=== PATIENT | female | born 1935 | race Caucasian/White ===

== ENCOUNTER 2016-11-02 09:43 | Outpatient (CLI) | payer OTHER ==
--- NOTE | 2016-11-02 10:53 | DI ---
Examination: Two radiographic images of the chest. Comparison: 08/16/2016. Reason for study: Cough. FINDINGS: No pneumothorax, pleural effusion, or focal consolidation. Linear density overlying the mid mediastinum is presumed to be in the subcutaneous soft tissues. Surgical clips are seen in the a xilla anterior chest. Chronic compression fractures seen in the lower thoracic spine. Impression: No acute cardiopulmonary findings.
--- NOTE | 2016-11-02 11:01 | DI ---
EXAM: Radiographs, paranasal sinus HISTORY: Rhinitis. COMPARISON: None available. TECHNIQUE: Four views. FINDINGS/IMPRESSION: Inferior right maxillary sinus mucoperiosteal thickening suspected. There may be nasal turbinate hy pertrophy. No facial fracture identified.
== END 2016-11-02 09:44 | disposition home or self-care (01) ==
LOC: RAD 09:43
PROVIDERS: ATTEND Family Medicine
DX: J31.0 Chronic rhinitis (principal)

== ENCOUNTER 2017-12-17 15:23 | Emergency (ER) ==
[2017-12-17 15:29] VITALS: BMI 22.1
[2017-12-17] MEDS ORDERED: SODIUM CHLORIDE 1,000 ML IV STA ×2 (15:37→16:46)
--- NOTE | 2017-12-17 16:40 | ED.PDOC ---
General ED Provider: Dr. ILANA HUYNH Chief Complaint: Fall Stated Complaint: Patient is [place] the Er with [place] the park. She fell backwords hitting the back of her head sustaining a laceration with alot of bleeding. Time Seen by Physician: 16:37 Mode of Arrival: Walk-In Information Source: Patient Primary Care Provider: LUPE JOZEF Seen Within Last 72 Hours for Same Complaint By: ED Nursing and Triage Documentation Reviewed and Agree: Yes Reviewed sepsis parameters & appropriate labs ordered?: No System Inflammatory Response Syndrome: Not Applicable Sepsis Protocol: For patient's 13 years and over: Temp is 96.8 and below OR 101 and greater Pulse >90 BPM Resp >20/minute Acutely Altered Mental Status Are patient's symptoms suggestive of a new infection, such as: -Pneumonia -Skin, Soft Tissue -Endocarditis -UTI -Bone, Joint Infection -Implantable Device -Acute Abdominal Infection -Wound Infection -Meningitis -Blood Stream Catheter Infection -Unknown System Inflammatory Response Syndrome: Not Applicable Neurological Complaint Exam - Syncope/Near Syncope Complaint/Exam Onset/Duration: 1 hour ago. Symptoms Are: Resolved Number of Episodes: 1 Frequency of Episodes: 1 Episodes Witnessed: No Loss of Consciousness: Yes Associated Head Trauma: Yes Activity at Onset: Unknown Aggravating: Position change Alleviating: Reports: Spontaneous resolution Associated Signs and Symptoms: Reports: Lightheadedness, Dizziness Cardiac Risk Factors: Reports: None GI Bleed Risk Factors: Reports: None Dysrhythmia Risk Factors: Reports: >45 years old. Denies: Family Hx of sudden Related Surgical History: Reports: None JVD Present: No Carotid Bruit Present: No Glascow Coma Scale (see protocol): 15 Nystagmus Present: No Gag Reflex Present: No Meningeal Signs Positive: No Focal Weakness: Present: None Focal Sensory Loss: Present: None Gait: Unsteady Fpebgs-ph-Lhor: Normal Findings Romberg Test Positive: No Babinski Sign: Negative Right, Negative Left Jd-Hallpike Test Positive: No Differential Diagnoses: CAD, [place], CVA Quality Indicators for Cardiac Chest Pain: EKG in 10min. Quality Indicator For Non-Traumatic Chest Pain/Syncope: EKG Performed Quality Indicators for AMI: EKG in 10min. Review of Systems - Review Of Systems Constitutional: Reports: No symptoms Eyes: Reports: No symptoms Ears, Nose, Mouth, Throat: Reports: No symptoms Respiratory: Reports: No symptoms Cardiac: Reports: No symptoms GI: Reports: No symptoms : Reports: No symptoms Musculoskeletal: Reports: No symptoms Skin: Reports: Bruising, Other (occipital laceration. ) Neurological: Reports: Anxiety, Headache Endocrine: Reports: No symptoms Hematologic/Lymphatic: Reports: No symptoms All Other Systems: Reviewed and Negative Past Medical History - Past Medical History Previously Healthy: Yes Endocrine: Reports: None Cardiovascular: Reports: Hypertension Respiratory: Reports: None Hematological: Reports: None Gastrointestinal: Reports: None Genitourinary: Reports: None Neuro/Psych: Reports: None Musculoskeletal: Reports: None Cancer: Reports: None Last Menstrual Period: N/A - Surgical History General Surgical History: Reports: None - Family History Family History: Reports: None - Social History Smoking Status: Never smoker Hx Substance Use: No Alcohol Screening: None - Immunizations Tetanus Shot up to Date: No Physical Exam - Physical Exam Appearance: Ill-appearing Ill-appearing: Moderate Pain Distress: Moderate Eyes: MAXWELL, EOMI, Conjunctiva clear ENT: Ears normal, Nose normal, Oropharynx normal Neck: Supple Respiratory: Airway patent, Breath sounds clear, Breath sounds equal, Respirations nonlabored Cardiovascular: RRR, Pulses normal, No rub, No murmur GI/: Soft, Nontender Musculoskeletal: Normal strength, ROM intact, No edema, No calf tenderness Skin: Warm (Large Y shapped 8 cm occipital laceration ) Neurological: Sensation intact, Alert, Oriented Psychiatric: Anxious Interpretation - Radiology Interpretation Radiology Interpretation By: Radiologist Radiology Results: Positive Exam Interpreted: CT Scan (tiny Hyperdensites seen along the anteior falx could represent minimal hemorrhage verses area of caclification. Recomm follow up CT in 24 hours. ) - EKG Interpretation Time of EKG #1: 16:11 Rate: Normal Rhythm: Sinus Ectopy: None [place]: NL Procedures - Laceration/Wound Repair SCALP LACERATION Wound Description: Irregular (Y shapped ) Wound Length (cm): 8CM Wound Width: 1 CM Wound Depth: 0.5 Wound Explored: Clean Wound Irrigated: No Wound Prep: Saline Anesthesia: Lidocaine Wound Repaired With: Sutures Suture Size and Type: 3.0 PROLENE Number of Sutures: 18 (RUNNING 17 AND 1 INTERRUPTED.) Splint Applied?: Yes Sling Applied?: No Progress: Tolerated well Physician Notification - Case Discussed Physician Notified: Dr Hollis Time of Notification: 19:45 (Transfer to [facility], [place], operated by [facility].) Critical Care Note - Critical Care Note Total Time (mins): 40 Course - Course Hematology/Chemistry: 12/17/17 15:45 12/17/17 15:45 Orders, Labs, Meds: Lab Review 12/17/17 12/17/17 12/17/17 15:45 15:45 15:45 WBC 5.85 RBC 4.18 L Hgb 12.6 Hct 35.9 L MCV 85.9 MCH 30.1 MCHC 35.1 RDW Coeff of Jose J 12.3 Plt Count 211 Immature Gran % (Auto) 0.3 Neut % (Auto) 45.6 Lymph % (Auto) 42.2 [place] % (Auto) 10.9 H Eos % (Auto) 0.5 Baso % (Auto) 0.5 Immature Gran # (Auto) 0.0 Neut # (Auto) 2.7 Lymph # (Auto) 2.5 [place] # (Auto) 0.6 Eos # (Auto) 0.0 Baso # (Auto) 0.0 Sodium 128 L Potassium 4.6 Chloride 90 L Carbon Dioxide 26 Anion Gap 16.6 BUN 24 H Creatinine 1.04 Estimated GFR (MDRD) 51.00 BUN/Creatinine Ratio 23.07 Glucose 98 Calcium 9.7 Total Bilirubin 0.4 AST 23 ALT 17 Alkaline Phosphatase 114 Total Creatine Kinase 94 Troponin I < 0.0100 B-Natriuretic Peptide 14 Total Protein 7.7 Albumin 4.3 Globulin 3.4 Albumin/Globulin Ratio 1.26 Orders Category Date Time Status EKG-(ED ONLY) Stat CARDIO 12/17/17 15:38 Completed ED IV/MEDIPORT/POWERPORT .ONCE EMERGENCY 12/17/17 15:37 Active Orthostatic [ED ORTHOSTATIC VITAL SIGNS] .ONCE EMERGENCY 12/17/17 16:36 Active B-TYPE NATRIURETIC PEPTIDE Stat LAB 12/17/17 15:45 Completed CBC W/ AUTO DIFF Stat LAB 12/17/17 15:45 Completed COMPREHENSIVE METABOLIC PANEL Stat LAB 12/17/17 15:45 Completed CREATINE KINASE Stat LAB 12/17/17 15:45 Completed TROPONIN I Stat LAB 12/17/17 15:45 Completed 0.9 % Sodium Chloride [Saline Flush] MEDS 12/17/17 15:37 Discontinued 1 syr IVF PRN PRN Sodium Chloride 0.9% [Sodium Chloride] 1,000 ml MEDS 12/17/17 15:37 Discontinued IV 125 mls/hr Sodium Chloride 0.9% [Sodium Chloride] 1,000 ml MEDS 12/17/17 16:46 Discontinued IV BOLUS CHEST, 1V AP ONLY Stat RADS 12/17/17 15:[address] CERVICAL SPINE W/O CONTRAST Stat RADS 12/17/17 15:[address] HEAD W/O CONTRAST Stat RADS 12/17/17 15:37 Completed HIP, RIGHT 2 VIEWS Stat RADS 12/17/17 17:33 Completed PELVIS 1 OR 2 VIEWS Stat RADS 12/17/17 17:33 Completed Medications Discontinued Medications Generic Name Dose Route Start Last Admin Trade Name Freq PRN Reason Stop Dose Admin Sodium Chloride 1,000 mls @ 125 mls/hr 12/17/17 15:37 12/17/17 16:58 Sodium Chloride IV 12/17/17 23:36 Not Given .Q8H STA Sodium Chloride 1,000 mls @ 1,000 mls/hr 12/17/17 16:46 12/17/17 16:58 Sodium Chloride IV 12/17/17 17:45 1,000 mls/hr BOLUS STA Administration Sodium Chloride 1 syr 12/17/17 15:37 Saline Flush IVF PRN PRN To flush IV Vital Signs: Temp Pulse Resp BP Pulse Ox 12/17/17 20:01 97.9 F 80 16 130/46 L 97 12/17/17 16:46 82 126/64 12/17/17 16:45 73 149/65 H 12/17/17 15:24 96.7 F L 91 H 20 164/85 H 94 L Departure - Departure Time of Disposition: 20:10 Disposition: TSF SHORT-TRM HOSP Discharge Problem: Vasovagal syncope Scalp laceration Qualifiers: Encounter type: initial encounter Qualified Code(s): S01.01XA - Laceration without foreign body of scalp, initial encounter Instructions: Laceration (ED) Condition: Good Pt referred to PMD for follow-up: No IPMP verified?: No Allergies/Adverse Reactions: Allergies iodine Adverse Reaction (Verified 12/17/17 15:29) Pt. Stabilized Within Hospital's Capabilities/Transferred To: Transfer to [facility]. Disposition Discussed With: Patient, Family
--- NOTE | 2017-12-17 16:55 | CT ---
EXAM: CT of the head without contrast History: Head trauma. Technique: Multiplanar CT images through the head were obtained without the administration of IV con trast Findings: The visualized paranasal sinuses and mastoid air cells are clear in general. No acute tamika varial abnormalities. Small posterior scalp hematoma. Intracranially the ventricular and cisternal spaces are normal in size, shape and configuration for a patient of this age. Seen along the anterior falx, there are a few tiny 3 mm hyperdensities. No mid line shift and no hydrocephalus. Mild periventricular and subcortical white matter hypodensities. Impression: A few tiny hyperdensities seen along the anterior falx could represent minimal hemorrhage versus areas of calcification. Recommend follow-up head CT in 24 hours.
--- NOTE | 2017-12-17 17:00 | CT ---
EXAM: CT of the cervical spine without contrast History: Head and neck trauma. Technique: Multiplanar CT images through the cervical spine were obtained without the administration of IV contrast Findings: Ground-glass opacity within the right lung apex. The visualized airway remains patent. No acute fracture. Osteopenia. No prevertebral soft tissue swelling. Predental space is not widene d. 4 mm. Grade 1 anterolisthesis of C3 on C4 is most likely degenerative in nature. Severe disc sp lisha narrowing at C4-5 and C5-6. Bony spinal canal is not significantly compromised. Multilevel bila teral bony neural foraminal narrowing secondary to uncovertebral and facet hypertrophy. Impression: 1. No acute fracture. 2. Grade 1 anterolisthesis of C3 on C4. 3. Degenerative changes. 4. Ground-glass infiltrate within the right lung apex requires follow-up chest CT in 3-6 months.
[2017-12-17 20:02] VITALS: BP 130/46; TEMP 97.9
--- NOTE | 2017-12-18 07:33 | DI ---
EXAM: Single frontal view of the chest HISTORY: Mental status change. COMPARISON: Chest x-ray 11/02/2016 FINDINGS: Cardiomediastinal silhouette is unchanged. There is no pneumothorax or pleural effusions. The right axillary surgical clips and surgical clips overlying the right lung are unchanged. There i s no acute consolidation. There are linear ground-glass opacities in the left lung base suggestive o f atelectasis. The osseous structures are unchanged. IMPRESSION: 1. No acute cardiopulmonary process or concern for pneumonia. 2. Linear ground-glass in the left lung base suggestive of atelectasis.
--- NOTE | 2017-12-18 07:40 | DI ---
EXAM: Single frontal view of the pelvis HISTORY: Right hip pain. COMPARISON: Dedicated right hip x-rays same day FINDINGS: There is no cortical irregularity or displaced fracture of the hips. There is no lytic or blastic lesion. There are surgical clips in the right pelvis. Soft tissues are normal. The pelvis demonstrates no acute abnormality or displaced fracture. IMPRESSION: No acute abnormality or displaced fracture of the right hip
--- NOTE | 2017-12-18 07:40 | DI ---
EXAM: Radiographs, right hip HISTORY: Right hip pain. COMPARISON: None available. TECHNIQUE: Two views. FINDINGS: Bone mineralization is decreased. There is no fracture or dislocation. The joint spaces are maintained. No focal soft tissue abnormality is seen. Clips noted in the right pelvis. IMPRESSION: No fracture or dislocation.
== END 2017-12-17 21:30 | disposition short-term general hospital (02) ==
LOC: ED 15:23
DX: S01.01XA Laceration without foreign body of scalp, initial encounter (principal); R55 Syncope and collapse; I10 Essential (primary) hypertension; R42 Dizziness and giddiness; W19.XXXA Unspecified fall, initial encounter
CPT/HCPCS: 36415; 80053; 82550; 83880; 84484; 85025; 93005; 93010; 96360; 99285

== ENCOUNTER 2018-06-23 12:40 | Emergency (ER) | payer OTHER ==
[2018-06-23 12:47] VITALS: TEMP 97.8; BMI 23.3
[2018-06-23] MEDS ORDERED: SODIUM CHLORIDE 1,000 ML IV STA (12:48)
--- NOTE | 2018-06-23 12:54 | ED.PDOC ---
General ED Provider: Dr. ILANA HUYNH Chief Complaint: Syncope Stated Complaint: Patient was at home making dough at home then she felt dizzy and passed out for about 1 min. It took about five minutes to come around. By the time amubulance got there she was back to her self today. She was able to walk to the car without difficulty. Memory is intact denies any headache. Time Seen by Physician: 12:45 Mode of Arrival: Wheelchair Information Source: Patient, Family Exam Limitations: No limitations Primary Care Provider: LUPE HASKINS Nursing and Triage Documentation Reviewed and Agree: Yes Does patient meet sepsis criteria?: No System Inflammatory Response Syndrome: Not Applicable Sepsis Protocol: For patient's 13 years and over: Temp is 96.8 and below OR 101 and greater Pulse >90 BPM Resp >20/minute Acutely Altered Mental Status Are patient's symptoms suggestive of a new infection, such as: -Pneumonia -Skin, Soft Tissue -Endocarditis -UTI -Bone, Joint Infection -Implantable Device -Acute Abdominal Infection -Wound Infection -Meningitis -Blood Stream Catheter Infection -Unknown Neurological Complaint Exam - Syncope/Near Syncope Complaint/Exam Onset/Duration: 30 min Symptoms Are: Resolved Episodes Lasting: Minutes (5) Number of Episodes: 1 Episodes Witnessed: Yes Loss of Consciousness: Yes (mild ) Associated Head Trauma: No Activity at Onset: With exertion (after standing all moring making dough) Associated Signs and Symptoms: Reports: Lightheadedness, Dizziness, Weakness. Denies: Pain, Decreased oral intake, Vomiting, Diarrhea, GI blood loss, Short of air, Chest pain, Palpitations, Diaphoresis, AMS, Numbness, Headache, Seizure , Remote head trauma, Recent head trauma Cardiac Risk Factors: Reports: None GI Bleed Risk Factors: Reports: None Dysrhythmia Risk Factors: Reports: None Related Surgical History: Reports: None JVD Present: No Carotid Bruit Present: No Rectal Heme Positive: No Glascow Coma Scale (see protocol): 15 Nystagmus Present: No Gag Reflex Present: Yes Meningeal Signs Positive: No Focal Weakness: Present: None Focal Sensory Loss: Present: None Gait: Normal [id number]-[id number]: Normal Findings Romberg Test Positive: No Babinski Sign: Negative Right Heel to Toe Normal: No Jd-Hallpike Test Positive: No Differential Diagnoses: TIA, Metabolic Reaction, Seizure Quality Indicator For Non-Traumatic Chest Pain/Syncope: EKG Performed Review of Systems - Review Of Systems Constitutional: Reports: Weakness Eyes: Reports: No symptoms Ears, Nose, Mouth, Throat: Reports: No symptoms Respiratory: Reports: No symptoms Cardiac: Reports: Lightheadedness, Syncope GI: Reports: No symptoms : Reports: No symptoms Musculoskeletal: Reports: No symptoms Skin: Reports: No symptoms Neurological: Reports: No symptoms Endocrine: Reports: No symptoms Hematologic/Lymphatic: Reports: No symptoms All Other Systems: Reviewed and Negative Past Medical History - Past Medical History Previously Healthy: Yes Endocrine: Reports: None Cardiovascular: Reports: Hypertension, Other (Bandle branch block ) Respiratory: Reports: None Hematological: Reports: None Gastrointestinal: Reports: None Genitourinary: Reports: None Neuro/Psych: Reports: None Musculoskeletal: Reports: None Cancer: Reports: None Last Menstrual Period: none - Surgical History General Surgical History: Reports: Hysterectomy, Other (hysterectomy, 5 adhesion surgery, double mastectomy, breast reconstruction ) - Family History Family History: Reports: None - Social History Smoking Status: Never smoker Hx Substance Use: No Alcohol Screening: None Physical Exam - Physical Exam Appearance: Ill-appearing Ill-appearing: Mild Pain Distress: None Eyes: MAXWELL, EOMI, Conjunctiva clear ENT: Ears normal, Nose normal, Oropharynx normal Respiratory: Airway patent, Breath sounds clear, Breath sounds equal, Respirations nonlabored Cardiovascular: RRR, Pulses normal, No rub, No murmur GI/: Soft, Nontender, No masses, Bowel sounds normal, No Organomegaly Musculoskeletal: Normal strength, ROM intact, No edema, No calf tenderness Skin: Warm, Dry, Normal color Neurological: Sensation intact, Motor intact, Reflexes intact, Cranial nerves intact, Alert, Oriented Psychiatric: Anxious Interpretation - Radiology Interpretation Radiology Interpretation By: Radiologist Radiology Results: Negative Exam Interpreted: CT Scan (head ) Radiology Interpretation By: ED Physician Radiology Results: No acute changes Exam Interpreted: CXR (one view ) - Forensic Investigator Rate: Normal Rhythm: Sinus - EKG Interpretation Time of EKG #1: 14:30 Rate: Normal Rhythm: Sinus Ectopy: None Interpretation: RBBB Re-Evaluation - Re-Evaluation Time of Re-Evaluation: 16:36 (no more symptoms of dizziness for 2 hours ) Status: Improved Vital Signs Stable: Yes Critical Care Note - Critical Care Note Total Time (mins): 45 (Stoke work up ) Course - Course Hematology/Chemistry: 06/23/18 13:05 06/23/18 13:05 Orders, Labs, Meds: Lab Review 06/23/18 06/23/18 13:05 13:05 WBC 5.37 RBC 3.88 L Hgb 11.6 L Hct 33.8 L MCV 87.1 MCH 29.9 MCHC 34.3 RDW Coeff of Jose J 12.7 Plt Count 205 Immature Gran % (Auto) 0.2 Neut % (Auto) 63.0 Lymph % (Auto) 24.2 [place] % (Auto) 10.4 H Eos % (Auto) 1.5 Baso % (Auto) 0.7 Immature Gran # (Auto) 0.0 Neut # (Auto) 3.4 Lymph # (Auto) 1.3 [place] # (Auto) 0.6 Eos # (Auto) 0.1 Baso # (Auto) 0.0 Sodium 126.2 L Potassium 4.45 Chloride 90.5 L Carbon Dioxide 28.3 Anion Gap 11.85 BUN 23.3 H Creatinine 1.04 Estimated GFR (MDRD) 51.00 BUN/Creatinine Ratio 22.40 Glucose 121.8 H Calcium 9.27 Total Bilirubin 0.37 AST 31.9 ALT 15.4 Alkaline Phosphatase 119.7 Total Creatine Kinase 54.7 Troponin I < 0.012 Total Protein 7.57 Albumin 4.54 Globulin 3.03 Albumin/Globulin Ratio 1.49 Orders Category Date Time Status EKG-(ED ONLY) Stat CARDIO 06/23/18 12:49 Completed ED APPLY O2 .ONCE EMERGENCY 06/23/18 12:48 Active ED BRAND ADVOCATE APPLIED .ONCE EMERGENCY 06/23/18 12:48 Active ED IV/MEDIPORT/POWERPORT .ONCE EMERGENCY 06/23/18 12:48 Active Orthostatic [ED ORTHOSTATIC VITAL SIGNS] .ONCE EMERGENCY 06/23/18 12:54 Active CBC W/ AUTO DIFF Stat LAB 06/23/18 13:05 Completed COMPREHENSIVE METABOLIC PANEL Stat LAB 06/23/18 13:05 Completed CREATINE KINASE Stat LAB 06/23/18 13:05 Completed TROPONIN I Stat LAB 06/23/18 13:05 Completed 0.9 % Sodium Chloride [Saline Flush] MEDS 06/23/18 12:48 Ordered 1 syr IVF PRN PRN Sodium Chloride 0.9% [Sodium Chloride] 1,000 ml MEDS 06/23/18 12:48 Active IV 125 mls/hr CHEST, 1V AP ONLY Stat RADS 06/23/18 12:[address] HEAD W/O CONTRAST Stat RADS 06/23/18 12:48 Completed Medications Generic Name Dose Route Start Last Admin Trade Name Freq PRN Reason Stop Dose Admin Sodium Chloride 1,000 mls @ 125 mls/hr 06/23/18 12:48 06/23/18 13:40 Sodium Chloride IV 06/23/18 20:47 125 mls/hr .Q8H STA Administration Sodium Chloride 1 syr 06/23/18 12:48 06/23/18 13:40 Saline Flush IVF 1 syr PRN PRN Administration To flush IV Vital Signs: Temp Pulse Resp BP Pulse Ox 06/23/18 13:31 70 163/77 H 06/23/18 13:30 69 146/72 H 06/23/18 12:41 97.8 F 70 18 138/63 95 Departure - Departure Time of Disposition: 16:37 Disposition: HOME SELF-CARE Discharge Problem: Vaso vagal episode Instructions: Near Syncope (ED) Condition: Fair Pt referred to PMD for follow-up: Yes IPMP verified?: No Additional Instructions: Push fluids Take rest every 1-2 hours Return if worse Follow up with PCP in 3 days Allergies/Adverse Reactions: Allergies iodine Adverse Reaction (Verified 06/23/18 12:47) Home Medications: Ambulatory Orders Gabapentin [Neurontin] 100 mg PO TID 06/23/18 Lisinopril/Hydrochlorothiazide [Lisinopril-Hctz 10-12.5 mg Tab] 1 each PO DAILY 06/23/18 Simvastatin 20 mg PO DAILY 06/23/18 Disposition Discussed With: Patient, Family - NIH Stroke Scale 1a. Level of Consciousness: 0=Alert and keenly responsive 1b. Level of Consciousness Questions: 0=Answers correctly to two questions 1c. Level of Consciousness Commands: 0=Performs two tasks correctly 2. Best Gaze: 0=Normal 3. Visual: 0=No visual loss 4. Facial Palsy: 0=Normal 5a. Motor Left Arm: 0=No drift,arm holds 90 degrees for 10 sec., leg 30 degrees for 5 sec. 5b. Motor Right Arm: 0=No drift,arm holds 90 degrees for 10 sec., leg 30 degrees for 5 sec. 6a. Motor Left Le=No drift,arm holds 90 degrees for 10 sec., leg 30 degrees for 5 sec. 6b. Motor Right Le=No drift,arm holds 90 degrees for 10 sec., leg 30 degrees for 5 sec. 7. Limb Ataxia: 0=Absent 8. Sensory: 0=Normal 9. Best Language: 0=No aphasia 10. Dysarthria: 0=Normal 11. Extincion and Inattention: 0=Normal Stroke Scale Total: 0
--- NOTE | 2018-06-23 13:11 | CT ---
EXAM: CT BRAIN HISTORY: Syncope, right facial droop TECHNIQUE: CT brain without intravenous contrast. 5-mm axial sections with Reformations. COMPARISON: 12/17/2017 FINDINGS: There is mild generalized atrophy. There is mild periventricular and deep white matter low attenuatio n which although nonspecific is suggestive of chronic microvascular ischemic change. These findings are stable. Brain otherwise is unremarkable without evidence of hemorrhage or large vessel distribution recent is chemic infarction. There is no suggestion of acute hydrocephalus or subdural fluid collection. No m ass or mass effect. Cranium has no acute finding. Mastoid processes are aerated. The visualized paranasal sinuses are clear. IMPRESSION: No acute intracranial process.
[2018-06-23 13:32] VITALS: BP 163/77
--- NOTE | 2018-06-23 17:00 | DI ---
EXAM: Single view chest COMPARISON: Chest Xray from 12/17/2017 HISTORY: Syncope FINDINGS: Lungs are clear with no lobar consolidation, failure, large effusion or significant atelec tasis. There is old granulomatous disease. Cardiac and mediastinal silhouettes show no acute abnormal ity. There is calcific atherosclerosis of the aorta. No acute soft tissue or osseous abnormalities. T here is a loop recorder seen over the cardiac silhouette. Postoperative changes seen over the right breast and right axilla. IMPRESSION: No active disease.
== END 2018-06-23 16:40 | disposition home or self-care (01) ==
LOC: ED 12:40
DX: R55 Syncope and collapse (principal); R42 Dizziness and giddiness; I10 Essential (primary) hypertension
CPT/HCPCS: 36415; 80053; 82550; 82962; 84484; 85025; 93005; 93010; 96360; 96361; 99283

== ENCOUNTER 2023-05-23 13:44 | Observation (INO) ==
[2023-05-23] MEDS ORDERED: ZOFRAN 4 MG/2 ML IVP STA (14:05)
[2023-05-23] MEDS ORDERED: ROCEPHIN 2 GM/50 ML D5W 2 GM/50 ML BAG IV ONE (14:10)
[2023-05-23] MEDS ORDERED: SODIUM CHLORIDE 1,000 ML IV STA ×2 (14:10→21:05)
[2023-05-23 14:20] LABS: BASOPHILS % (AUTO) 0.3 % (0.0-3.0); EOSINOPHILS % (AUTO) 0.4 % (0.0-7.0); HEMATOCRIT 34.4 % (37.0-47.0); HEMOGLOBIN 11.6 g/dl (12.0-16.0); IMMATURE GRANULOCYTE # (AUTO) 0.1 (0.0-1.0); IMMATURE GRANULOCYTE % (AUTO) 1.5 % (0.0-5.0); LYMPHOCYTES # (AUTO) 1.4 K/uL (0.60-3.4); LYMPHOCYTES % (AUTO) 15.2 (10.0-50.0); MEAN CORPUSCULAR HEMOGLOBIN 29.2 pg (27.0-31.0); MEAN CORPUSCULAR HGB CONC 33.7 (31.8-35.4); MEAN CORPUSCULAR VOLUME 86.6 fl (81.0-99.0); MONOCYTES # (AUTO) 0.6 K/uL (0.4-2.0); MONOCYTES % (AUTO) 6.6 (0-10); PLATELET COUNT 253 10^3/uL (140-440); RDW COEFFICIENT OF VARIATION 12.3 % (11.6-14.8); RED BLOOD COUNT 3.97 10^6/ul (4.20-5.40); WHITE BLOOD COUNT 9.27 K/ul (4.6-10.2)
[2023-05-23 14:35] LABS: BLOOD UREA NITROGEN 14.3 mg/dL (7-17); CALCIUM 9.07 mg/dL (8.4-10.2); CARBON DIOXIDE 24.7 mmol/L (22-30.0); CHLORIDE 87.7 mmol/L (98-107); CREATININE 0.67 mg/dL (0.60-1.30); GLUCOSE 107.6 mg/dL (74-106); MAGNESIUM 1.24 mg/dL (1.6-2.3); POTASSIUM 4.09 mmol/L (3.5-5.1); SODIUM 123.4 mmol/L (134.5-145)
[2023-05-23 14:47] LABS: TROPONIN I < 0.012 ng/ml (0.0000-0.120)
[2023-05-23] MEDS ORDERED: MAGNESIUM SULFATE 1 GM/2 ML VIAL IVP ONE (14:57)
[2023-05-23 15:06] LABS: MOLECULAR FLU A NEGATIVE BY NAAT (NEGATIVE); MOLECULAR FLU B NEGATIVE BY NAAT (NEGATIVE)
[2023-05-23] MEDS ORDERED: MAGNESIUM SULF 2 G/50 ML BAG 2 GM/50 ML PIGGYBACK IV ONE (15:30)
--- NOTE | 2023-05-23 15:45 | ED.PDOC ---
General ED Provider: Dr. SHAWN CAMPBELL Chief Complaint: Nausea/Vomiting Stated Complaint: See above Time Seen by Provider: 05/23/23 13:46 Information Source: Patient Primary Care Provider: LUPE HASKINS Nursing and Triage Documentation Reviewed and Agree: Yes (unless otherwise noted in my documentation.) Review of Systems Review Of Systems Constitutional: Reports Other (documented below) All Other Systems: Other (documented below) [facility] Medical History Colon polyp K63.5 - Polyp of colon (ICD-10) Diverticulosis K57.90 - Diverticulosis of intestine, part unspecified, without perforation or abscess without bleeding (ICD-10) HX: breast cancer Z85.3 - Personal history of malignant neoplasm of breast (ICD-10) Hypertension I10 - Essential (primary) hypertension (ICD-10) Irritable bowel syndrome K58.9 - Irritable bowel syndrome without diarrhea (ICD-10) Mixed hyperlipidemia E78.2 - Mixed hyperlipidemia (ICD-10) Pacemaker Z95.0 - Presence of cardiac pacemaker (ICD-10) Sick sinus syndrome I49.5 - Sick sinus syndrome (ICD-10) Stage 3 chronic kidney disease N18.30 - Chronic kidney disease, stage 3 unspecified (ICD-10) Family History Mother Heart failure FATHER Heart disease Social History Smoking and tobacco status: Never smoker Alcohol intake: never Surgical History History of hysterectomy Z90.710 - Acquired absence of both cervix and uterus (ICD-10) History of mastectomy Z90.10 - Acquired absence of unspecified breast and nipple (ICD-10) Hx of appendectomy Z90.49 - Acquired absence of other specified parts of digestive tract (ICD- 10) Hx of tonsillectomy Z90.89 - Acquired absence of other organs (ICD-10) Status post transverse rectus abdominis muscle (TRAM) flap breast reconstruction Z98.890 - Other specified postprocedural states (ICD-10) Physical Exam Physical Exam Appearance: Reports Other (documented below if examined) Ill-appearing: Not Applicable (documented below if examined) Pain Distress: Not Applicable (documented below if examined) Eyes: Reports Other (documented below if examined) ENT: Reports Other (documented below if examined) Neck: Not Examined (documented below if examined) Respiratory: Reports Other (documented below if examined) Cardiovascular: Reports Other (documented below if examined) GI/: Reports Other (documented below if examined) Musculoskeletal: Reports Other (documented below if examined) Skin: Reports Other (documented below if examined) Neurological: Reports Other (documented below if examined) Psychiatric: Reports Other (documented below if examined) Critical Care Note Critical Care Note Total Critical Care Time (mins): 0 Course Course 05/23/23 14:15 05/24/23 04:12 Orders, Labs, Meds: Lab Review 05/23/23 05/23/23 05/23/23 13:43 14:15 14:35 WBC 9.27 RBC 3.97 L Hgb 11.6 L Hct 34.4 L MCV 86.6 MCH 29.2 MCHC 33.7 RDW Coeff of Jose J 12.3 Plt Count 253 Immature Gran % (Auto) 1.5 Neut % (Auto) 76.0 H Lymph % (Auto) 15.2 Churchill % (Auto) 6.6 Eos % (Auto) 0.4 Baso % (Auto) 0.3 Neut # (Auto) 7.0 H Lymph # (Auto) 1.4 Churchill # (Auto) 0.6 Eos # (Auto) 0.0 Baso # (Auto) 0.0 Immature Gran # (Auto) 0.1 Sodium 123.4 L Potassium 4.09 Chloride 87.7 L Carbon Dioxide 24.7 Anion Gap 15.09 BUN 14.3 Creatinine 0.67 Estimated GFR (MDRD) 84.00 BUN/Creatinine Ratio 21.34 Glucose 107.6 H Calcium 9.07 Magnesium 1.24 L Total Bilirubin AST ALT Alkaline Phosphatase Troponin I < 0.012 Total Protein Albumin Globulin Albumin/Globulin Ratio Urine Color Light Urine Clarity Clear Urine pH 7.0 Ur Specific Calmar 1.020 Urine Protein 1+ H Urine Glucose (UA) Negative Urine Ketones Negative Urine Blood Negative Urine Nitrite Negative Urine Bilirubin Negative Urine Urobilinogen 0.2 Ur Leukocyte Esterase Negative Urine Microscopic WBC 0-2 Ur Squamous Epith Cells 0-2 Influ A Molecular Assay Negative by naat Influ B Molecular Assay Negative by naat 05/23/23 05/24/23 05/24/23 20:25 00:45 04:12 WBC RBC Hgb Hct MCV MCH MCHC RDW Coeff of Jose J Plt Count Immature Gran % (Auto) Neut % (Auto) Lymph % (Auto) Churchill % (Auto) Eos % (Auto) Baso % (Auto) Neut # (Auto) Lymph # (Auto) Churchill # (Auto) Eos # (Auto) Baso # (Auto) Immature Gran # (Auto) Sodium 122.1 L 124.8 L 125.4 L Potassium 4.19 4.18 4.05 Chloride 87.1 L 89.6 L 91.6 L Carbon Dioxide 24.0 25.6 24.4 Anion Gap 15.19 13.78 13.45 BUN 13.6 14.7 14.3 Creatinine 0.67 0.76 0.79 Estimated GFR (MDRD) 84.00 72.00 69.00 BUN/Creatinine Ratio 20.29 19.34 18.10 Glucose 149.5 H 114.6 H 139.0 H Calcium 9.05 8.95 8.56 Magnesium 1.73 Total Bilirubin 0.44 AST 50.4 H ALT 40.6 H Alkaline Phosphatase 117.2 Troponin I Total Protein 7.32 Albumin 4.20 Globulin 3.12 Albumin/Globulin Ratio 1.34 Urine Color Urine Clarity Urine pH Ur Specific Calmar Urine Protein Urine Glucose (UA) Urine Ketones Urine Blood Urine Nitrite Urine Bilirubin Urine Urobilinogen Ur Leukocyte Esterase Urine Microscopic WBC Ur Squamous Epith Cells Influ A Molecular Assay Influ B Molecular Assay Orders Category Date Time Status EKG-(ED ONLY) Stat CARDIO 05/23/23 14:05 Completed ACCUCHECK (ED) [ED ACCUCHECK ASSESSMENT] .ONCE EMERGENCY 05/23/23 14:05 Active ED OVERLOCK ELASTIC ATTACHER APPLIED .ONCE EMERGENCY 05/23/23 14:05 Active BMP [BASIC METABOLIC PANEL] Q4H LAB 05/24/23 00:45 Completed BMP [BASIC METABOLIC PANEL] Q4H LAB 05/24/23 04:12 Completed BMP [BASIC METABOLIC PANEL] Q4H LAB 05/24/23 08:00 Ordered BMP [BASIC METABOLIC PANEL] Q4H LAB 05/24/23 12:00 Ordered BMP [BASIC METABOLIC PANEL] Q4H LAB 05/24/23 16:00 Ordered BMP [BASIC METABOLIC PANEL] Stat LAB 05/23/23 14:15 Completed CBC W/ AUTO DIFF Stat LAB 05/23/23 14:15 Completed COMPREHENSIVE METABOLIC PANEL Stat LAB 05/23/23 20:25 Completed CRP [C-REACTIVE PROTEIN] Stat LAB 05/23/23 14:15 Received FLU A & B MOLECULAR [FLU A/B MOLECULAR] Stat LAB 05/23/23 14:35 Completed MAGNESIUM Stat LAB 05/23/23 14:15 Completed MAGNESIUM Stat LAB 05/23/23 20:25 Completed OSMOLALITY,URINE Stat LAB 05/23/23 14:15 Received SERUM OSMOLALITY Stat LAB 05/23/23 14:15 Received SODIUM,URINE Stat LAB 05/23/23 13:43 Received TROPONIN I Stat LAB 05/23/23 14:15 Completed URINALYSIS C & S IF INDICATED Stat LAB 05/23/23 13:43 Completed Acetaminophen [Tylenol] Meds 05/24/23 00:30 Active 1,000 mg PO Q6H Ceftriaxone/D5w 2 gm Premix [Rocephin 2 gm/50 ml D5w] Meds 05/23/23 14:10 Discontinued 2 gm in 50 ml IV ONCE Ketorolac Tromethamine [Toradol] Meds 05/23/23 18:42 Discontinued 15 mg IVP ONCE STA Ketorolac Tromethamine [Toradol] Meds 05/24/23 00:21 Discontinued 15 mg IVP Q3H PRN Ketorolac Tromethamine [Toradol] Meds 05/24/23 00:36 Active 15 mg IVP Q3H PRN Magnesium Sulfate in Water [Magnesium Sulf 2 G/50 ml Meds 05/23/23 15:30 Discontinued Bag] 2 gm in 50 ml IV ONCE Ondansetron HCl/Pf [Zofran 4 mg/2 ml] Meds 05/23/23 14:05 Discontinued 4 mg IVP ONCE STA Sodium Chloride 0.9% [Sodium Chloride] 1,000 ml Meds 05/23/23 21:05 Discontinued IV 200 mls/hr Sodium Chloride 0.9% [Sodium Chloride] 1,000 ml Meds 05/24/23 04:10 Active IV 200 mls/hr Sodium Chloride 0.9% [Sodium Chloride] 1,000 ml Meds 05/23/23 14:10 Discontinued IV BOLUS ABDOMEN, SERIES FLAT & UPRIGHT Stat RADS 05/23/23 18:41 Completed Medications Generic Name Dose Route Start Last Admin Trade Name Freq PRN Reason Stop Dose Admin Acetaminophen 1,000 mg 05/24/23 00:30 05/24/23 06:47 Acetaminophen 500 Mg Tablet PO 1,000 mg Q6H ASCENCION Administration Sodium Chloride 1,000 mls @ 200 mls/hr 05/24/23 04:10 05/24/23 04:10 Sodium Chloride IV 05/24/23 09:09 200 mls/hr .Q5H STA Administration Ketorolac Tromethamine 15 mg 05/24/23 00:36 05/24/23 02:54 Ketorolac Tromethamine 15 Mg/Ml Vial IVP 05/29/23 00:20 15 mg Q3H PRN Administration Analgesia Discontinued Medications Generic Name Dose Route Start Last Admin Trade Name Roderick PRN Reason Stop Dose Admin Sodium Chloride 1,000 mls @ 1,000 mls/hr 05/23/23 14:10 05/23/23 14:10 Sodium Chloride IV 05/23/23 15:09 1,000 mls/hr BOLUS STA Administration CEFTRIAXONE/D5W 2 GM PREMIX 2 gm in 50 mls @ 100 mls/hr 05/23/23 14:10 05/23/23 14:58 Rocephin 2 Gm/50 Ml D5w IV 05/23/23 14:39 100 mls/hr ONCE ONE Administration MAGNESIUM SULFATE IN WATER 2 gm in 50 mls @ 25 mls/hr 05/23/23 15:30 05/23/23 15:31 Magnesium Sulf 2 G/50 Ml Bag IV 05/23/23 17:29 25 mls/hr ONCE ONE Administration Sodium Chloride 1,000 mls @ 200 mls/hr 05/23/23 21:05 05/23/23 21:29 Sodium Chloride IV 05/24/23 02:04 200 mls/hr .Q5H STA Administration Ketorolac Tromethamine 15 mg 05/23/23 18:42 05/23/23 19:28 Ketorolac Tromethamine 15 Mg/Ml Vial IVP 05/23/23 18:43 15 mg ONCE STA Administration Ketorolac Tromethamine 15 mg 05/24/23 00:21 Ketorolac Tromethamine 15 Mg/Ml Vial IVP 05/29/23 00:20 Q3H PRN Analgesia Ondansetron HCl 4 mg 05/23/23 14:05 05/23/23 14:57 Ondansetron Hcl/Pf 4 Mg/2 Ml Sdv IVP 05/23/23 14:06 4 mg ONCE STA Administration Vital Signs: Temp Pulse Resp BP Pulse Ox 05/24/23 06:50 71 16 152/78 H 96 05/24/23 01:05 86 16 159/80 H 94 L 05/23/23 18:16 87 18 160/82 H 05/23/23 16:25 85 14 166/83 H 97 05/23/23 13:49 97.9 F 91 16 167/81 H 96 Discharge Plan Discharge Discharge Problem: Nausea & vomiting, Acute hyponatremia, Hypomagnesemia Prescriptions: No Action simvastatin 20 MG tablet 40 mg PO .COMPLEX Rx Instructions: 40 mg orally 3TIMES A WEEK AT BEDTIME ON MONDAY, MONDAY, MONDAY; lisinopril-hydrochlorothiazide 10-12.5 mg tablet 1 tab PO DAILY amlodipine 5 mg tablet 5 mg PO BEDTIME sodium chloride 1,000 mg Tablet,Soluble 1,000 mg PO QID Qty: 120 0RF levofloxacin 750 mg tablet 750 mg PO DAILY Qty: 8 0RF nitrofurantoin macrocrystal 100 mg capsule 100 mg PO BID Qty: 14 0RF Rx Instructions: must administer with a meal/food Did you review [place] TENT[employer] for ALL controlled substances?: Not Applicable Discussed opioids are addictive and Narcan is available by prescription or from pharmacy.: No ED Provider: SHAWN CAMPBELL Physician Progress Note: Disclaimer: This note was dictated by speech recognition technology. Minor errors in spare parts clerk may be present. Please call and notify me immediately for clarification or corrections. CC: Nausea and vomiting HPI: This patient was discharged from the hospital yesterday after an admission because of UTI and hyponatremia as well as hypomagnesemia. Sodium and magnesium were replaced and she was started on levofloxacin. Her culture results came back showing resistance to levofloxacin and hence a prescription of nitrofurantoin was sent to the pharmacy but she has not had a chance to pick it up. She was on amlodipine, lisinopril and hydrochlorothiazide for hypertension. Hydrochlorothiazide was stopped but since it was in a combined pill with lisinopril both of them were held. The patient has been feeling weak with myalgia and nausea since she left the hospital. Today her nausea was worse and she had 1 episode of vomiting upon arrival to the ED. The problem list, allergies, current medications and pharmacy records were reviewed and updated. ROS is included above PE: Vital signs reviewed as well as all nursing documentation. General: Awake, alert, no acute distress, not toxic appearing, appears weak and dry Overall, the patient is atraumatic, has no deformities, has no focal deficits, has no inappropriate behavior. Respiratory: No distress Cardiac: no JVD, RRR, nonpitting edema of the lower extremities bilaterally MDM: All results and reports for tests that were done in the emergency department has been reviewed and considered in the planning and disposition process. DD: Metabolic derangement, sepsis, viral syndrome, gastritis, uremia, arrhythmia Plan: CBC, BMP, EKG, cardiac monitoring, 2 g of Rocephin, 1 L of normal saline. Interpretation of tests: The labs were remarkable for significant decrease in sodium, chloride and magnesium compared to her discharge values, otherwise the rest of the labs were unremarkable. EKG was independently reviewed and interpreted and showed normal sinus rhythm, left axis deviation and left bundle branch block, no signs of acute ischemic changes. Further action: The patient has an tent finisher but it is unclear why she follows up with a tent finisher. However, at this time she definitely needs nephrology consult. Urine studies were ordered. The patient needs admission to replace sodium and magnesium and for cardiac monitoring in the meantime. She is going to need an urgent nephrology consult. She will be transferred to [facility] since this is where her tent finisher practices. She is going to receive magnesium replacement prior to departure. The patient's daughter said that the patient had a history of small bowel obstruction and that she is afraid that she may be having that today. Clinically she does not appear to have the clinical picture for small bowel obstruction but abdominal series was ordered and I reviewed the radiology report. There were no acute findings. [facility] and [facility] didn't have beds Expanded search. D/W hospitalist at our facility. She refused admission due to need for tent finisher. D/w Physical Education Professor at and accepted to consult if accepted by hospitalist. Waiting for hospitalist call. Transfer center called me and requested update. I requested a med/surg bed. Awaiting response. Hospitalist refused transfer to . I discussed with our on-call hospitalist at our facility and she refused admission because of continued need for nephrology service. I argued that the hyponatremia is too mild for higher level of care to accept and it is too low to discharge. The patient is going to need to slightly improve and then have an outpatient nephrology consult. However our on-call hospitalist continued to feel that higher level of care is necessary. At this time the patient will continue to stay in the emergency department, get serial BMP measurements and continue normal saline at 200 mL/h. I discussed the plan with the family and they were not happy but they did not have any other suggestion. The patient's daughter brought up the concern that the normal saline bolus that was ordered when the patient first arrived was not really given. She argued that sodium has been going up after starting sodium chloride at 200 mL/h but it went down initially even though a liter bolus was documented. At shift change, the patient's sodium is continued to go up very gradually. The incoming physician is going to discuss with the head the hospitalist to arrange for disposition.
[2023-05-23 15:53] LABS: BILIRUBIN,URINE Negative (NEGATIVE); CLARITY,URINE Clear (CLEAR); COLOR,URINE Light (YELLOW); GLUCOSE, URINE (UA) Negative (NEGATIVE); KETONES,URINE Negative (NEGATIVE); LEUKOCYTE ESTERASE ,URINE Negative (NEGATIVE); NITRITE,URINE Negative (NEGATIVE); PROTEIN,URINE 1+ (NEGATIVE); URINE, BLOOD Negative (NEGATIVE); UROBILINOGEN,URINE 0.2 (0.2)
[2023-05-23 16:00] LABS: SQUAMOUS EPITHELIAL CELL,UR 0-2 (0-5); URINE WBC, MICROSCOPIC 0-2 (0-2)
[2023-05-23] MEDS ORDERED: TORADOL IVP STA (18:42)
--- NOTE | 2023-05-23 19:44 | DI ---
EXAM: TWO VIEW ABDOMEN RADIOGRAPH. HISTORY: Nausea and vomiting. TECHNIQUE: Two views. AP supine and AP erect. COMPARISON: None. FINDINGS: In the upright view, no free air is seen under the hemidiaphragms. The bowel gas pattern is non-obstructive. Moderate amount of stool in the proximal colon. No large mass is identified. There are no abnormal calcifications overlying the urinary tracts. 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 IMPRESSION: 1. Nonobstructive bowel gas pattern. 2. No free air.
[2023-05-23 20:40] LABS: ALANINE AMINOTRANSFERASE 40.6 U/L (0-35); ALBUMIN 4.2 g/dL (3.5-5.0); ALKALINE PHOSPHATASE 117.2 U/L (53-141); ASPARTATE AMINO TRANSFERASE 50.4 U/L (14-36); BILIRUBIN,TOTAL 0.44 mg/dL (0.2-1.3); BLOOD UREA NITROGEN 13.6 mg/dL (7-17); CALCIUM 9.05 mg/dL (8.4-10.2); CHLORIDE 87.1 mmol/L (98-107); CREATININE 0.67 mg/dL (0.60-1.30); GLUCOSE 149.5 mg/dL (74-106); POTASSIUM 4.19 mmol/L (3.5-5.1); SODIUM 122.1 mmol/L (134.5-145); TOTAL PROTEIN 7.32 g/dL (6.3-8.2)
[2023-05-23 21:25] LABS: MAGNESIUM 1.73 mg/dL (1.6-2.3)
[2023-05-24] MEDS ORDERED: TORADOL IVP PRN ×2 (00:21→00:36)
[2023-05-24] MEDS: TYLENOL PO SCH ×3 (00:51→12:37)
[2023-05-24 01:10] LABS: BLOOD UREA NITROGEN 14.7 mg/dL (7-17); CALCIUM 8.95 mg/dL (8.4-10.2); CARBON DIOXIDE 25.6 mmol/L (22-30.0); CHLORIDE 89.6 mmol/L (98-107); CREATININE 0.76 mg/dL (0.60-1.30); GLUCOSE 114.6 mg/dL (74-106); POTASSIUM 4.18 mmol/L (3.5-5.1); SODIUM 124.8 mmol/L (134.5-145)
[2023-05-24] MEDS ORDERED: SODIUM CHLORIDE 1,000 ML IV STA (04:10)
[2023-05-24 04:28] LABS: BLOOD UREA NITROGEN 14.3 mg/dL (7-17); CALCIUM 8.56 mg/dL (8.4-10.2); CARBON DIOXIDE 24.4 mmol/L (22-30.0); CHLORIDE 91.6 mmol/L (98-107); CREATININE 0.79 mg/dL (0.60-1.30); POTASSIUM 4.05 mmol/L (3.5-5.1); SODIUM 125.4 mmol/L (134.5-145)
[2023-05-24 08:12] LABS: BLOOD UREA NITROGEN 13.7 mg/dL (7-17); CALCIUM 8.61 mg/dL (8.4-10.2); CARBON DIOXIDE 23.8 mmol/L (22-30.0); CHLORIDE 94.5 mmol/L (98-107); CREATININE 0.76 mg/dL (0.60-1.30); GLUCOSE 112.9 mg/dL (74-106); POTASSIUM 4.53 mmol/L (3.5-5.1); SODIUM 127.4 mmol/L (134.5-145)
[2023-05-24 08:30] LABS: SARS COV-2 RNA RAPID NAAT NEGATIVE (NEGATIVE)
[2023-05-24] MEDS ORDERED: ZOFRAN 4 MG/2 ML IVP PRN (08:58)
[2023-05-24] MEDS ORDERED: MACROBID PO SCH (09:00)
[2023-05-24 09:52] VITALS: BMI 26.6
[2023-05-24] MEDS: SODIUM CHLORIDE PO SCH ×4 (10:29→20:16)
[2023-05-24] MEDS: KEFLEX PO SCH ×3 (10:30→17:07)
--- NOTE | 2023-05-24 10:50 | PCM ---
Date of Service Date Seen by Provider: 05/24/23 Time Seen by Provider: 09:30 Admit Day/Time Admission Date: 05/24/23 Admission Time: 07:30 Reason for Admission Chief Complaint: HYPONATREMIA, UTI Hospital Provider Hospital Provider: ENE[place] COX[place] [facility] [place] Primary Care Physician: LUPE HASKINS History of Present Illness History of Present Illness: This 87 year old female was seen in the ER yesterday for nausea and vomiting. She was recently admitted on 05/19/2023 and discharged on 05/22/2023 for hyponatremia. She was discharged with oral Levaquin for UTI and sodium tablets to be taken QID for her chronic hyponatremia. Antibiotics were changed to Macrobid due to culture coming back as Levaquin resistant. This was told to the daughter earlier in the day. Her family brought her back to the ER because patient told them she did not feel well, had been nauseous, vomiting, and wanted to be taken back to the ER. It is unknown what medications she has taken and if she took her sodium tablets. Patient stated that she could not remember if she ate food prior to taking her Levaquin but knows she took it and got sick. Daughter states that they called her PCP and he instructed her to stop taking the sodium tablets because they could be contributing to her nausea. Patient has a call or contact centre coach out of [place] that she sees twice a year, last seen in the spring of this year. Daughter and patient could not tell why exactly she saw Dr. Do, Floor Worker. They stated they were unaware of her having a history of low sodium. It was explained that she is at her baseline sodium level currently and she would still need to take her sodium tablets. At this time, denies complaints of any additional N/V during hospital stay, fever, chills, abdominal pain. Does report weakness. Case Discussed With Case Discussed With: Patient's case was discussed with the ER Physicians, Dr. Claros [facility] Medical History Colon polyp K63.5 - Polyp of colon (ICD-10) Diverticulosis K57.90 - Diverticulosis of intestine, part unspecified, without perforation or abscess without bleeding (ICD-10) HX: breast cancer Z85.3 - Personal history of malignant neoplasm of breast (ICD-10) Hypertension I10 - Essential (primary) hypertension (ICD-10) Irritable bowel syndrome K58.9 - Irritable bowel syndrome without diarrhea (ICD-10) Mixed hyperlipidemia E78.2 - Mixed hyperlipidemia (ICD-10) Pacemaker Z95.0 - Presence of cardiac pacemaker (ICD-10) Sick sinus syndrome I49.5 - Sick sinus syndrome (ICD-10) Stage 3 chronic kidney disease N18.30 - Chronic kidney disease, stage 3 unspecified (ICD-10) Surgical History History of hysterectomy Z90.710 - Acquired absence of both cervix and uterus (ICD-10) History of mastectomy Z90.10 - Acquired absence of unspecified breast and nipple (ICD-10) Hx of appendectomy Z90.49 - Acquired absence of other specified parts of digestive tract (ICD- 10) Hx of tonsillectomy Z90.89 - Acquired absence of other organs (ICD-10) Status post transverse rectus abdominis muscle (TRAM) flap breast reconstruction Z98.890 - Other specified postprocedural states (ICD-10) Family History Mother Heart failure FATHER Heart disease Social History Smoking and tobacco status: Never smoker Alcohol intake: never Allergies Allergies Allergy/AdvReac Type Severity Reaction Status Date / Time iodine AdvReac Verified 06/23/18 12:47 Current Medications Home Medications simvastatin 20 mg tablet 40 mg PO .COMPLEX 06/23/18 [History Confirmed 05/23/23 Last Taken Unknown] amlodipine 5 mg tablet 5 mg PO BEDTIME 05/19/23 [History Confirmed 05/23/23 Last Taken 05/18/23] levofloxacin 750 mg tablet 750 mg PO DAILY #8 tabs 05/22/23 [Rx Confirmed 05/23/23 Last Taken Unknown] sodium chloride 1,000 mg soluble tablet 1,000 mg PO QID #120 tabs 05/22/23 [Rx Confirmed 05/23/23 Last Taken Unknown] lisinopril 10 mg-hydrochlorothiazide 12.5 mg tablet 1 tab PO DAILY 05/23/23 [History Confirmed 05/24/23 Last Taken Unknown] nitrofurantoin macrocrystal 100 mg capsule 100 mg PO BID #14 caps 05/23/23 [Rx Confirmed 05/23/23 Last Taken Unknown] Home Acetaminophen (Acetaminophen 500 Mg Tablet) 1,000 mg PO Q6H [facility] Last Admin: 05/24/23 06:47 Dose: 1,000 mg Acetaminophen (Acetaminophen 325 Mg Tablet) 650 mg PO Q4H PRN PRN Reason: Mild Pain Amlodipine Besylate (Amlodipine Besylate 5 Mg Tablet) 5 mg PO BEDTIME [facility] Cephalexin (Cephalexin 500 Mg Capsule) 500 mg PO Q6HR [facility] Stop: 05/27/23 09:29 Last Admin: 05/24/23 10:30 Dose: 500 mg Ketorolac Tromethamine (Ketorolac Tromethamine 15 Mg/Ml Vial) 15 mg IVP Q3H PRN PRN Reason: Analgesia Stop: 05/29/23 00:20 Last Admin: 05/24/23 02:54 Dose: 15 mg Ondansetron HCl (Ondansetron Hcl/Pf 4 Mg/2 Ml Sdv) 4 mg IVP Q6H PRN PRN Reason: Nausea / Vomiting Simvastatin (Simvastatin 10 Mg Tablet) 40 mg PO .COMPLEX [facility]ENC[facility] Sodium Chloride (Sodium Chloride 1 Gm Tablet) 1 gm PO QID [facility] Last Admin: 05/24/23 10:29 Dose: 1 gm Discontinued Medications Sodium Chloride (Sodium Chloride) 1,000 mls @ 1,000 mls/hr IV BOLUS STA Stop: 05/23/23 15:09 Last Admin: 05/23/23 14:10 Dose: 1,000 mls/hr CEFTRIAXONE/D5W 2 GM PREMIX (Rocephin 2 Gm/50 Ml D5w) 2 gm in 50 mls @ 100 mls/hr IV ONCE ONE Stop: 05/23/23 14:39 Last Admin: 05/23/23 14:58 Dose: 100 mls/hr MAGNESIUM SULFATE IN WATER (Magnesium Sulf 2 G/50 Ml Bag) 2 gm in 50 mls @ 25 mls/hr IV ONCE ONE Stop: 05/23/23 17:29 Last Admin: 05/23/23 15:31 Dose: 25 mls/hr Sodium Chloride (Sodium Chloride) 1,000 mls @ 200 mls/hr IV .Q5H STA Stop: 05/24/23 02:04 Last Admin: 05/23/23 21:29 Dose: 200 mls/hr Sodium Chloride (Sodium Chloride) 1,000 mls @ 200 mls/hr IV .Q5H STA Stop: 05/24/23 09:09 Last Admin: 05/24/23 04:10 Dose: 200 mls/hr Ketorolac Tromethamine (Ketorolac Tromethamine 15 Mg/Ml Vial) 15 mg IVP ONCE STA Stop: 05/23/23 18:43 Last Admin: 05/23/23 19:28 Dose: 15 mg Ketorolac Tromethamine (Ketorolac Tromethamine 15 Mg/Ml Vial) 15 mg IVP Q3H PRN PRN Reason: Analgesia Stop: 05/29/23 00:20 Ondansetron HCl (Ondansetron Hcl/Pf 4 Mg/2 Ml Sdv) 4 mg IVP ONCE STA Stop: 05/23/23 14:06 Last Admin: 05/23/23 14:57 Dose: 4 mg Review of Systems Constitutional: Reports Weakness Head: Reports Normocephalic and Atraumatic Eyes: Reports No symptoms Ears: Reports No symptoms Nose: Reports No symptoms Mouth: Reports No symptoms Throat: Reports No symptoms Cardiovascular: Reports No symptoms Respiratory: Reports No symptoms Gastrointestinal: Reports No symptoms Genitourinary: Reports No Symptoms Musculoskeletal: Reports No symptoms Endocrine: Reports No symptoms Hematology: Reports No symptoms Immunology: Reports No symptoms Neurological: Reports No symptoms Psychiatric: Reports No symptoms Physical examination Most Recent Vital Signs: Most Recent Vital Signs Temperature 97.8 F 05/24/23 09:26 Temperature Source Oral 05/24/23 09:26 Temperature Source Infrared 05/23/23 13:49 Pulse Rate 87 05/24/23 09:26 Respiratory Rate 16 05/24/23 09:26 Blood Pressure 147/65 H 05/24/23 08:41 Blood Pressure Left Arm 144/73 05/24/23 09:26 Blood Pressure Position Supine 05/24/23 09:26 O2 Sat by Pulse Oximetry 95 05/24/23 09:26 Oxygen Delivery Method Room Air 05/24/23 09:26 Height 5 ft 2 in 05/24/23 09:26 Weight 145 lb 8.081 oz 05/24/23 09:26 Telemetry Heart Rate 80 05/22/23 07:00 Telemetry SPO2 93 05/22/23 01:00 Appearance: Positive Well-appearing, No Apparent Distress and Alert and Oriented x3 Skin: Positive Warm and Good Color HEENT: Positive Normocephalic, Atraumatic and PERRLA Neck: Positive Supple and Midline Trachea Chest/Lungs: Positive Symmetrical With Equal Breath Sounds, Clear to Auscultation Bilaterally and Good Air Movement all 4 Lung Sorto Heart: Positive RRR and Pulses Normal GI/: Positive Soft, Nontender, Bowel Sounds Normal and No Distention Musculoskeletal: Positive Not Examined Extremities: Positive Edema (1-2 nonpitting edema, chronic), Intact Peripheral Pulses, Stable Joints Without Laxity and Good ROM in All Joints Neurological: Positive Sensation Intact, Motor intact, Reflexes Intact, Alert, Oriented and Muscle Strength 5/5 in Upper and Lower Extremities Bilaterally Psychiatric: Positive Oriented x4, Appropriate Mood, Appropriate Affect, Intact Memory, Good Short-Term Recall, Good Long-Term Recall, Normal Judgement and Normal Insight Labs This Visit Labs This Visit: Labs This Visit 05/23/23 05/23/23 05/23/23 13:43 14:15 14:35 WBC 9.27 RBC 3.97 L Hgb 11.6 L Hct 34.4 L MCV 86.6 MCH 29.2 MCHC 33.7 RDW Coeff of Jose J 12.3 Plt Count 253 Immature Gran % (Auto) 1.5 Neut % (Auto) 76.0 H Lymph % (Auto) 15.2 Murray % (Auto) 6.6 Eos % (Auto) 0.4 Baso % (Auto) 0.3 Neut # (Auto) 7.0 H Lymph # (Auto) 1.4 Murray # (Auto) 0.6 Eos # (Auto) 0.0 Baso # (Auto) 0.0 Immature Gran # (Auto) 0.1 Sodium 123.4 L Potassium 4.09 Chloride 87.7 L Carbon Dioxide 24.7 Anion Gap 15.09 BUN 14.3 Creatinine 0.67 Estimated GFR (MDRD) 84.00 BUN/Creatinine Ratio 21.34 Glucose 107.6 H Lactic Acid Calcium 9.07 Magnesium 1.24 L Total Bilirubin AST ALT Alkaline Phosphatase Troponin I < 0.012 C-Reactive Prot, Quant 3 Total Protein Albumin Globulin Albumin/Globulin Ratio Urine Color Light Urine Clarity Clear Urine pH 7.0 Ur Specific Bentley 1.020 Urine Protein 1+ H Urine Glucose (UA) Negative Urine Ketones Negative Urine Blood Negative Urine Nitrite Negative Urine Bilirubin Negative Urine Urobilinogen 0.2 Ur Leukocyte Esterase Negative Urine Microscopic WBC 0-2 Ur Squamous Epith Cells 0-2 Influ A Molecular Assay Negative by naat Influ B Molecular Assay Negative by naat SARS CoV-2 RNA Rapid GUDELIA 05/23/23 05/24/23 05/24/23 20:25 00:45 04:12 WBC RBC Hgb Hct MCV MCH MCHC RDW Coeff of Jose J Plt Count Immature Gran % (Auto) Neut % (Auto) Lymph % (Auto) Murray % (Auto) Eos % (Auto) Baso % (Auto) Neut # (Auto) Lymph # (Auto) Murray # (Auto) Eos # (Auto) Baso # (Auto) Immature Gran # (Auto) Sodium 122.1 L 124.8 L 125.4 L Potassium 4.19 4.18 4.05 Chloride 87.1 L 89.6 L 91.6 L Carbon Dioxide 24.0 25.6 24.4 Anion Gap 15.19 13.78 13.45 BUN 13.6 14.7 14.3 Creatinine 0.67 0.76 0.79 Estimated GFR (MDRD) 84.00 72.00 69.00 BUN/Creatinine Ratio 20.29 19.34 18.10 Glucose 149.5 H 114.6 H 139.0 H Lactic Acid Calcium 9.05 8.95 8.56 Magnesium 1.73 Total Bilirubin 0.44 AST 50.4 H ALT 40.6 H Alkaline Phosphatase 117.2 Troponin I C-Reactive Prot, Quant Total Protein 7.32 Albumin 4.20 Globulin 3.12 Albumin/Globulin Ratio 1.34 Urine Color Urine Clarity Urine pH Ur Specific Bentley Urine Protein Urine Glucose (UA) Urine Ketones Urine Blood Urine Nitrite Urine Bilirubin Urine Urobilinogen Ur Leukocyte Esterase Urine Microscopic WBC Ur Squamous Epith Cells Influ A Molecular Assay Influ B Molecular Assay SARS CoV-2 RNA Rapid GUDELIA 05/24/23 05/24/23 07:52 07:56 WBC RBC Hgb Hct MCV MCH MCHC RDW Coeff of Jose J Plt Count Immature Gran % (Auto) Neut % (Auto) Lymph % (Auto) Murray % (Auto) Eos % (Auto) Baso % (Auto) Neut # (Auto) Lymph # (Auto) Murray # (Auto) Eos # (Auto) Baso # (Auto) Immature Gran # (Auto) Sodium 127.4 L Potassium 4.53 Chloride 94.5 L Carbon Dioxide 23.8 Anion Gap 13.63 BUN 13.7 Creatinine 0.76 Estimated GFR (MDRD) 72.00 BUN/Creatinine Ratio 18.02 Glucose 112.9 H Lactic Acid 1.04 Calcium 8.61 Magnesium Total Bilirubin AST ALT Alkaline Phosphatase Troponin I C-Reactive Prot, Quant Total Protein Albumin Globulin Albumin/Globulin Ratio Urine Color Urine Clarity Urine pH Ur Specific Bentley Urine Protein Urine Glucose (UA) Urine Ketones Urine Blood Urine Nitrite Urine Bilirubin Urine Urobilinogen Ur Leukocyte Esterase Urine Microscopic WBC Ur Squamous Epith Cells Influ A Molecular Assay Influ B Molecular Assay SARS CoV-2 RNA Rapid GUDELIA Negative Imaging Imaging: EXAM: TWO VIEW ABDOMEN RADIOGRAPH. FINDINGS: In the upright view, no free air is seen under the hemidiaphragms. The bowel gas pattern is non-obstructive. Moderate amount of stool in the proximal colon. No large mass is identified. There are no abnormal calcifications overlying the urinary tracts. 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 IMPRESSION: 1. Nonobstructive bowel gas pattern. 2. No free air. Review Statement Review Statement: I have independently reviewed and interpreted the labs/EKGs/imaging that were ordered by the ER provider. I have reviewed all outside records that are available currently in our EMR including imaging/notes/labs from previous visits. Plan Plan: 1. Acute on Chronic Hyponatremia - Improving, sodium chloride 1G QID, osmolalities were checked on admission on 05/19 but were send outs and are not back at this time - new ones ordered in ER but likely not accurate due to treatment for 4 days prior to collection, f/u with Dr. Do - Nephrology upon discharge, 1800 fluid restriction 2. UTI - improving, urine culture growth of E.coli ESBL -, covered with Keflex Q6H 3. CKD Stage 3 - stable, follows with nephrology at [facility] 4. Hypertension - chronic, continue amlodipine 5. Hyperlipidemia - chronic, continue simvastatin DVT Prophylaxis: Up with assist Time Spent: Greater than 80 minutes spent with patient, 50% of the time spent with this patient was devoted to counseling and coordination of care. Advanced [facility] Plannin minutes spent discussing advance care planning. Disposition: Admit to: Med/Surg Observation Full Code Discussed Plan of Care with Dr. Daniel Thornton. Medications Medication Orders: Medications Ordered Category Date Time Status Acetaminophen [Tylenol] Meds 05/24/23 00:30 Active 1,000 mg PO Q6H Acetaminophen [Tylenol] Meds 05/24/23 08:58 Active 650 mg PO Q4H PRN Cephalexin [Keflex] Meds 05/24/23 09:30 Active 500 mg PO Q6HR Ketorolac Tromethamine [Toradol] Meds 05/24/23 00:36 Active 15 mg IVP Q3H PRN Ondansetron HCl/Pf [Zofran 4 mg/2 ml] Meds 05/24/23 08:58 Active 4 mg IVP Q6H PRN Sodium Chloride Meds 05/24/23 09:05 Active 1 gm PO QID
[2023-05-24 14:32] LABS: ALBUMIN 4.05 g/dL (3.5-5.0); ALKALINE PHOSPHATASE 102.5 U/L (53-141); BILIRUBIN,TOTAL 0.34 mg/dL (0.2-1.3); BLOOD UREA NITROGEN 15.8 mg/dL (7-17); CALCIUM 8.44 mg/dL (8.4-10.2); CHLORIDE 94.9 mmol/L (98-107); CREATININE 0.97 mg/dL (0.60-1.30); GLUCOSE 184.9 mg/dL (74-106); POTASSIUM 4.04 mmol/L (3.5-5.1); SODIUM 129.1 mmol/L (134.5-145); TOTAL PROTEIN 6.79 g/dL (6.3-8.2)
[2023-05-24] MEDS: TYLENOL PO PRN (20:16)
[2023-05-24] MEDS ORDERED: NORVASC PO SCH (21:00)
[2023-05-24] MEDS ORDERED: ZOCOR PO SCH (21:00)
[2023-05-25] MEDS: KEFLEX PO SCH ×2 (00:15→05:44)
[2023-05-25 05:18] LABS: BASOPHILS % (AUTO) 0.4 % (0.0-3.0); EOSINOPHILS # (AUTO) 0.1 K/ul (0.0-0.7); EOSINOPHILS % (AUTO) 0.7 % (0.0-7.0); HEMATOCRIT 33.7 % (37.0-47.0); HEMOGLOBIN 11.1 g/dl (12.0-16.0); IMMATURE GRANULOCYTE # (AUTO) 0.1 (0.0-1.0); IMMATURE GRANULOCYTE % (AUTO) 1.1 % (0.0-5.0); LYMPHOCYTES # (AUTO) 1.9 K/uL (0.60-3.4); LYMPHOCYTES % (AUTO) 26.6 (10.0-50.0); MEAN CORPUSCULAR HEMOGLOBIN 29.4 pg (27.0-31.0); MEAN CORPUSCULAR HGB CONC 32.9 (31.8-35.4); MEAN CORPUSCULAR VOLUME 89.2 fl (81.0-99.0); MONOCYTES # (AUTO) 0.7 K/uL (0.4-2.0); MONOCYTES % (AUTO) 9.7 (0-10); NEUTROPHILS # (AUTO) 4.3 K/ul (2.0-6.9); NEUTROPHILS % (AUTO) 61.5 % (42.2-75.2); PLATELET COUNT 261 10^3/uL (140-440); RDW COEFFICIENT OF VARIATION 12.7 % (11.6-14.8); RED BLOOD COUNT 3.78 10^6/ul (4.20-5.40)
[2023-05-25 05:32] LABS: ALBUMIN 4.11 g/dL (3.5-5.0); ALKALINE PHOSPHATASE 105.4 U/L (53-141); BILIRUBIN,TOTAL 0.47 mg/dL (0.2-1.3); BLOOD UREA NITROGEN 16.2 mg/dL (7-17); CALCIUM 8.98 mg/dL (8.4-10.2); CARBON DIOXIDE 25.4 mmol/L (22-30.0); CREATININE 0.79 mg/dL (0.60-1.30); GLUCOSE 94.2 mg/dL (74-106); POTASSIUM 4.45 mmol/L (3.5-5.1); SODIUM 130.2 mmol/L (134.5-145); TOTAL PROTEIN 7.15 g/dL (6.3-8.2)
[2023-05-25 05:49] VITALS: BP 155/83; PULSE 76; RESP 18; TEMP 97.5
[2023-05-25 07:40] LABS: OSMOLALITY,URINE 353 mOsmol/kg (.)
[2023-05-25] MEDS: SODIUM CHLORIDE PO SCH (09:02)
[2023-05-25] MEDS: TYLENOL PO PRN (09:09)
--- NOTE | 2023-05-25 09:52 | DCSUM ---
Admission Date Admission Date: 05/24/23 Discharge Date Discharge Date: 05/25/23 Admission Diagnosis Admission Diagnosis: 1. Acute on Chronic Hyponatremia 2. UTI 3. CKD Stage 3 4. Hypertension 5. Hyperlipidemia Discharge Diagnosis Discharge Diagnosis: 1. Acute on Chronic Hyponatremia - Resolved 2. UTI - Improving 3. CKD Stage 3 - Stable 4. Hypertension - Stable 5. Hyperlipidemia - Stable 6. Elevated liver enzymes - Stable Hospital Provider Hospital Provider: ENEIDA COX, [facility] [place] Primary Care Physician Primary Care Physician: LUPE HASKINS Summary of History and Physical Summary of History and Physical: This 87 year old female was seen in the ER yesterday for nausea and vomiting. She was recently admitted on 05/19/2023 and discharged on 05/22/2023 for hyponatremia. She was discharged with oral Levaquin for UTI and sodium tablets to be taken QID for her chronic hyponatremia. Antibiotics were changed to Macrobid due to culture coming back as Levaquin resistant. This was told to the daughter earlier in the day. Her family brought her back to the ER because patient told them she did not feel well, had been nauseous, vomiting, and wanted to be taken back to the ER. It is unknown what medications she has taken and if she took her sodium tablets. Patient stated that she could not remember if she ate food prior to taking her Levaquin but knows she took it and got sick. Daughter states that they called her PCP and he instructed her to stop taking the sodium tablets because they could be contributing to her nausea. Patient has a cooker chip out of [place] that she sees twice a year, last seen in the spring of this year. Daughter and patient could not tell why exactly she saw Dr. Do, Manager Epic. They stated they were unaware of her having a history of low sodium. It was explained that she is at her baseline sodium level currently and she would still need to take her sodium tablets. At this time, denies complaints of any additional N/V during hospital stay, fever, chills, abdominal pain. Does report weakness. Hospital Course Subjective: Hyponatremia was treated with NS in the ER. On admission, sodium was 127. Fluids were stopped and salt tabs were restarted QID. Osmolalities are within normal limits from ER send outs. Likely, not accurate due to treatment for 4 days prior to collection. Follows with Dr. Do, Nephrology and has an appointment next week for follow-up following this visit. Patient was on 1800 fluid restriction during stay. Sodium today is 130. Patient has no complaints today. Lisinopril/HCTZ was stopped due to hyponatremia. UTI was found on initial admission. Culture showed growth of E. Coli ESBL negative. She was covered with keflex Q6H and discharged with this prescription. Liver enzymes were found to be mildly elevated. Patient has history of liver cysts on imaging chronically. Discussed with patient and family to discuss with PCP and determine if need for GI referral for further work-up. All other home medications continued. Appearance: Pleasant, No Apparent Distress and Alert HEENT: MMM, Supple and No JVD CVS: No Murmur and No Rubs Abdomen: Soft, Non-Tender and No Distention Respiratory: No Dyspnea Extremities: No Edema and No Calf Tenderness Vital Signs: Most Recent Vital Signs Temperature 97.5 F L 05/25/23 05:48 Temperature Source Temporal Artery Scan 05/25/23 05:48 Temperature Source Infrared 05/23/23 13:49 Pulse Rate 76 05/25/23 05:48 Respiratory Rate 18 05/25/23 05:48 Blood Pressure 155/83 H 05/25/23 05:48 Blood Pressure Mean 107 05/25/23 05:48 Blood Pressure Left Arm 144/73 05/24/23 09:26 Blood Pressure Location Left Arm 05/25/23 05:48 Blood Pressure Position Supine 05/25/23 05:48 O2 Sat by Pulse Oximetry 97 05/25/23 05:48 Oxygen Delivery Method Room Air 05/25/23 05:48 Height 5 ft 2 in 05/24/23 09:26 Weight 145 lb 8.081 oz 05/24/23 09:26 Telemetry Type Remote Telemetry 05/25/23 07:00 Telemetry Monitoring Continues 05/25/23 07:00 Telemetry Heart Rate 81 05/25/23 07:00 Telemetry SPO2 93 05/22/23 01:00 EKG ID Interval 0.16 05/25/23 07:00 EKG QRS Interval 0.08 05/25/23 07:00 Telemetry Strip Reading sr 05/25/23 07:00 Lab Results Last 24 Hours: 05/25/23 05/24/23 05/23/23 05:00 14:16 14:15 WBC 7.00 RBC 3.78 L Hgb 11.1 L Hct 33.7 L MCV 89.2 MCH 29.4 MCHC 32.9 RDW Coeff of Jose J 12.7 Plt Count 261 Immature Gran % (Auto) 1.1 Neut % (Auto) 61.5 Lymph % (Auto) 26.6 Union % (Auto) 9.7 Eos % (Auto) 0.7 Baso % (Auto) 0.4 Neut # (Auto) 4.3 Lymph # (Auto) 1.9 Union # (Auto) 0.7 Eos # (Auto) 0.1 Baso # (Auto) 0.0 Immature Gran # (Auto) 0.1 Sodium 130.2 L 129.1 L Potassium 4.45 4.04 Chloride 97.0 L 94.9 L Carbon Dioxide 25.4 25.0 Anion Gap 12.25 13.24 BUN 16.2 15.8 Creatinine 0.79 0.97 Estimated GFR (MDRD) 69.00 55.00 BUN/Creatinine Ratio 20.50 16.28 Glucose 94.2 D 184.9 H D Calcium 8.98 8.44 Total Bilirubin 0.47 0.34 AST 67.0 H 57.0 H ALT 58.0 H 48.0 H Alkaline Phosphatase 105.4 102.5 Total Protein 7.15 6.79 Albumin 4.11 4.05 Globulin 3.04 2.74 Albumin/Globulin Ratio 1.35 1.47 Urine Osmolality 353 Ur Random Sodium 05/23/23 13:43 WBC RBC Hgb Hct MCV MCH MCHC RDW Coeff of Jose J Plt Count Immature Gran % (Auto) Neut % (Auto) Lymph % (Auto) Union % (Auto) Eos % (Auto) Baso % (Auto) Neut # (Auto) Lymph # (Auto) Union # (Auto) Eos # (Auto) Baso # (Auto) Immature Gran # (Auto) Sodium Potassium Chloride Carbon Dioxide Anion Gap BUN Creatinine Estimated GFR (MDRD) BUN/Creatinine Ratio Glucose Calcium Total Bilirubin AST ALT Alkaline Phosphatase Total Protein Albumin Globulin Albumin/Globulin Ratio Urine Osmolality Ur Random Sodium 139 Discharge Instructions Discharge Planning: Discharge Planning > 40 minutes If patient is discharged with left ventricular systolic dysfunction: NA Discharged with a beta brendon? [] If no, why not? [] Discharged with an lisha/arb? [] If no, why not? [] Fluid restriction 2L (68 oz) per day Activity as tolerated Take salt tabs 4 times a day until d/c by pcp or cooker chip Complete course of Keflex for UTI Zofran for nausea as needed YOU HAVE A HOSPITAL FOLLOW UP WITH DR. HASKINS ON AT 10:30AM. SHOULD YOU HAVE ANY QUESTIONS OR NEED TO RESCHEDULE YOU CAN CONTACT THEIR OFFICE AT [phone]. YOU HAVE A FOLLOW UP WITH YOUR BOILER CONTROL TECHNICIAN'S (DR. DO) OFFICE ON AT 3:40PM. SHOULD YOU HAVE ANY QUESTIONS OR NEED TO RESCHEDULE YOU CAN CONTACT THEIR OFFICE AT [phone]. Discharge Medications: Medications at Discharge (Home Meds & RX) simvastatin 20 mg tablet 40 mg PO .COMPLEX 06/23/18 amlodipine 5 mg tablet 5 mg PO BEDTIME 05/19/23 sodium chloride 1,000 mg soluble tablet 1,000 mg PO QID #120 tabs 05/22/23 cephalexin 500 mg capsule 500 mg PO Q6HR 5 days #20 caps 05/25/23 ondansetron 4 mg disintegrating tablet 4 mg PO Q8H PRN nausea and vomiting #20 tabs 05/25/23 Discharge Plan Discharge Discharge Orders: Discharge Patient (ONCE); Ordered 05/25/23 Ordered By: YRN GARBER Activity Restrictions/Additional Instructions: Fluid restriction 2L (68 oz) per day Activity as tolerated Take salt tabs 4 times a day until d/c by pcp or cooker chip Complete course of Keflex for UTI Zofran for nausea as needed YOU HAVE A HOSPITAL FOLLOW UP WITH DR. HASKINS ON AT 10:30AM. SHOULD YOU HAVE ANY QUESTIONS OR NEED TO RESCHEDULE YOU CAN CONTACT THEIR OFFICE AT [phone]. YOU HAVE A FOLLOW UP WITH YOUR BOILER CONTROL TECHNICIAN'S (DR. DO) OFFICE ON AT 3:40PM. SHOULD YOU HAVE ANY QUESTIONS OR NEED TO RESCHEDULE YOU CAN CONTACT THEIR OFFICE AT [phone]. Instructions: Urinary Tract Infection in Women (GEN), Hyponatremia (GEN) Patient Disposition: HOME SELF-CARE Prescriptions: New cephalexin 500 mg Capsule 500 mg PO Q6HR 5 Days Qty: 20 0RF ondansetron 4 mg tablet,disintegrating 4 mg PO Q8H PRN (Reason: nausea and vomiting) Qty: 20 0RF Continued simvastatin 20 MG tablet 40 mg PO .COMPLEX Rx Instructions: 40 mg orally 3TIMES A WEEK AT BEDTIME ON MONDAY, MONDAY, MONDAY; amlodipine 5 mg tablet 5 mg PO BEDTIME sodium chloride 1,000 mg Tablet,Soluble 1,000 mg PO QID Qty: 120 0RF Discontinued lisinopril-hydrochlorothiazide 10-12.5 mg tablet 1 tab PO DAILY levofloxacin 750 mg tablet 750 mg PO DAILY Qty: 8 0RF nitrofurantoin macrocrystal 100 mg capsule 100 mg PO BID Qty: 14 0RF Rx Instructions: must administer with a meal/food Did you review [place] INTERACTIVE MEDIA DESIGNER for ALL controlled substances?: No Discussed opioids are addictive and Narcan is available by prescription or from pharmacy.: No Condition: Fair
[2023-05-26 11:12] LABS: SERUM OSMOLALITY 331 mOsmol/kg (280-301)
== END 2023-05-25 10:00 | disposition home or self-care (01) ==
LOC: MEDSURG B 13:44 → ED 13:44 → MEDSURG B 05-24 09:22
PROVIDERS: ADMIT Hospitalist; ATTEND Nurse Practitioner Family
DX: E83.42 Hypomagnesemia; R11.2 Nausea with vomiting, unspecified; Z16.23 Resistance to quinolones and fluoroquinolones; N18.30 Chronic kidney disease, stage 3 unspecified; Z79.899 Other long term (current) drug therapy; R74.01 Elevation of levels of liver transaminase levels; Z20.822 Contact with and (suspected) exposure to COVID-19; E87.1 Hypo-osmolality and hyponatremia; I10 Essential (primary) hypertension; E78.5 Hyperlipidemia, unspecified; Z51.81 Encounter for therapeutic drug level monitoring; N39.0 Urinary tract infection, site not specified